=== PATIENT | female | born 1995 | race Caucasian/White ===

== ENCOUNTER 2018-05-27 17:37 | Outpatient (CLI) | payer BC ==
--- NOTE | 2018-05-27 20:40 | RAD ---
RIGHT FOOT THREE VIEWS: 05/27/2018 FINDINGS: No fracture or periosteal reaction is seen. The fifth metatarsal appears intact, as do the other alyx rby structures. IMPRESSION: No acute finding. POS: HOME
== END 2018-05-27 17:38 | disposition home or self-care (01) ==
LOC: BURRAD 17:37
PROVIDERS: ATTEND Family Medicine
DX: M79.671 Pain in right foot (principal)

== ENCOUNTER 2022-06-18 10:12 | Emergency (ER) | payer BC ==
[2022-06-18] MEDS ORDERED: Lidocaine 1% w/Epinephrine 1:100K 20 ML VIAL ONE (10:30)
[2022-06-18] MEDS ORDERED: Boostrix 0.5 ML (Tdap) VIAL ONE (10:59)
== END 2022-06-18 11:05 | disposition home or self-care (01) ==
LOC: BURERS 10:12
DX: S93.402A Sprain of unspecified ligament of left ankle, initial encounter (principal); S91.012A Laceration without foreign body, left ankle, initial encounter; W26.8XXA Contact with other sharp object(s), not elsewhere classified, initial encounter; Z23 Encounter for immunization
CPT/HCPCS: 12001; 90471; 90715